=== PATIENT | female | born 1950 | race Caucasian/White ===

== ENCOUNTER 2018-03-30 16:15 | Emergency (ER) | payer OTHER ==
[~2018-03-30] VITALS: Ht 165.1 cm; Wt 123.0 kg
[2018-03-30 17:45] LABS: BASOPHILS % 0.8 % (0.0-2.0); EOSINOPHILS % 6.9 % (0.0-5.0); HEMATOCRIT. 35.8 % (36.0-48.0); HEMOGLOBIN. 11.9 g/dL (12.0-16.0); LYMPHOCYTES % 27.7 % (20.0-50.0); MEAN CORPUSCULAR HEMOGLOBIN 29.2 pg (28.0-32.0); MEAN CORPUSCULAR VOLUME 87.9 fL (81.0-99.0); MEAN PLATELET VOLUME 8.6 fl (7.4-10.4); MONOCYTES % 9.5 % (2.0-8.0); NEUTROPHILS % 55.1 % (40.0-76.0); PLATELET 206 x1000/uL (130-400); RED BLOOD CELL COUNT 4.08 mill/uL (4.2-5.4); RED CELL DISTRIBUTION WIDTH 14.5 % (11.6-14.6)
[2018-03-30 17:49] LABS: CHLORIDE 108 mEq/L (98-107)
[2018-03-30 17:52] LABS: PROTHROMBIN TIME 10.8 sec (9.4-11.6)
[2018-03-30 23:12] VITALS: BP 162/79
== END 2018-03-30 23:30 | disposition home or self-care (01) ==
LOC: ER 16:15
DX: R07.89 Other chest pain (principal); I11.0 Hypertensive heart disease with heart failure; I50.9 Heart failure, unspecified; E78.00 Pure hypercholesterolemia, unspecified; Z90.710 Acquired absence of both cervix and uterus; Z90.10 Acquired absence of unspecified breast and nipple
CPT/HCPCS: 36415; 71045; 80053; 83880; 84484; 85025; 85610; 93005; 99285

== ENCOUNTER 2023-09-16 18:37 | Emergency (ER) | payer OTHER ==
[~2023-09-16] VITALS: Ht 170.2 cm; Wt 100.0 kg
[2023-09-16 18:44] VITALS: O2SAT 96
[2023-09-16] MEDS ORDERED: SODIUM CHLORIDE 0.9% 1,000 ML IV ONE (19:00)
[2023-09-16 19:31] LABS: BASOPHILS % 0.3 % (0.0-2.0); HEMATOCRIT. 36.9 % (36.0-48.0); HEMOGLOBIN. 11.8 g/dL (12.0-16.0); MEAN CORPUSCULAR HEMOGLOBIN 28.9 pg (28.0-32.0); MEAN CORPUSCULAR HGB CONC 32.1 g/dL (31.0-37.0); MEAN CORPUSCULAR VOLUME 90.1 fL (81.0-99.0); MEAN PLATELET VOLUME 9.6 fl (7.4-10.4); NEUTROPHILS % 75.7 % (40.0-76.0); PLATELET 125 x1000/uL (130-400); RED BLOOD CELL COUNT 4.09 mill/uL (4.2-5.4); RED CELL DISTRIBUTION WIDTH 14.4 % (11.6-14.6); WHITE BLOOD COUNT 8.2 x1000/uL (4.5-11.0)
[2023-09-16 19:42] LABS: INR 1.2; PROTHROMBIN TIME 12.4 sec (9.6-11.0)
[2023-09-16 19:48] LABS: ALANINE AMINOTRANSFERASE 22 IU/L (10-49); ALBUMIN 3.7 g/dL (3.2-4.8); ASPARTATE AMINOTRANSFERASE 39 IU/L (<34); BILIRUBIN TOTAL 1.2 mg/dL (0.1-1.0); CALCIUM 8.8 mg/dL (8.7-10.4); CARBON DIOXIDE 24 mEq/L (21-32); CHLORIDE 96 mEq/L (98-107); CREATININE 1.4 mg/dL (0.6-1.0); GLUCOSE 265 mg/dL (70-105); POTASSIUM 3.9 mEq/L (3.5-5.1); PROTEIN TOTAL 6.9 g/dL (6.0-8.3); SODIUM 130 mEq/L (136-145); TROPONIN I HIGH SENSITIVITY 13 ng/L (3.0-34); UREA NITROGEN BLOOD 21 mg/dL (9-23)
[2023-09-16 23:17] VITALS: BP 148/84; PULSE 76; RESP 19; TEMP 98.2
== END 2023-09-16 23:22 | disposition short-term general hospital (02) ==
LOC: ER 18:37
DX: R55 Syncope and collapse (principal); F03.90 Unspecified dementia, unspecified severity, without behavioral disturbance, psychotic disturbance, mood disturbance, and anxiety; E78.00 Pure hypercholesterolemia, unspecified; I10 Essential (primary) hypertension; Z90.710 Acquired absence of both cervix and uterus
CPT/HCPCS: 99285; 96360; 70450; 71045; 96361; 80053; 85025; 85610; 84484; 36415; 93005; J7030